=== PATIENT | female | born 1985 | race Hispanic/Latino ===

== ENCOUNTER → 2019-05-18 | Outpatient (CLI) | payer OTHER | END | disposition home or self-care (01) | LOC: SHCH 08:01 | PROVIDERS: ATTEND Internal Medicine Cardiovascular Disease | DX: I10 Essential (primary) hypertension (principal) | CPT/HCPCS: 93306 ==

== ENCOUNTER → 2021-09-25 | Outpatient (CLI) | payer OTHER ==
[~2021-09-25] MED LIST: GADOTERATE MEGLUMINE 10 MMOL/20 ML VIAL IV ONE
== END | disposition home or self-care (01) ==
LOC: RAH 13:36
PROVIDERS: ATTEND Internal Medicine Cardiovascular Disease
DX: I71.2 Thoracic aortic aneurysm, without rupture (principal)
CPT/HCPCS: 71555; A9575

== ENCOUNTER → 2024-02-16 | Outpatient (CLI) | payer OTHER ==
[2024-02-16 12:29] LABS: CREATININE 0.5 mg/dL (0.5-1.0); POTASSIUM 4.4 mmol/L (3.5-5.1)
== END | disposition home or self-care (01) ==
LOC: LAB 10:25
PROVIDERS: ATTEND Internal Medicine Cardiovascular Disease
DX: I10 Essential (primary) hypertension (principal)
CPT/HCPCS: 36415; 80048; 83735

== ENCOUNTER → 2024-10-31 | Outpatient (CLI) | payer OTHER ==
--- NOTE | 2024-11-01 08:50 | HMCIMG ---
EXAM: MRA Chest without and with Intravenous Contrast CLINICAL HISTORY: Patient with thoracic aortic aneurysm on prior imaging, undergoing follow-up evaluation. TECHNIQUE: Magnetic resonance images of the chest acquired in multiple planes before and after intravenous contrast. CONTRAST: 17 mL Clariscan COMPARISON: None provided. FINDINGS: PLEURA AND LUNGS: Evaluation of the lungs is severely limited by motion. No pleural effusion. MEDIASTINUM: No contour-deforming mediastinal or posterior mediastinal mass. LYMPH NODES: No definite mediastinal or axillary lymphadenopathy. CHEST WALL AND SOFT TISSUES: Median sternotomy sutures in situ. Chest wall, surrounding muscles, and soft tissues appear within normal limits. BONES: No acute bony abnormality. AORTA AND GREAT VESSELS: No aortic aneurysm or dissection. Ascending thoracic aorta measures 2.8 cm in caliber. Descending thoracic aorta measures 2.3 cm in caliber. Abdominal aorta measures 2.7 x 2.5 cm UPPER ABDOMEN: Mild hepatomegaly; right hepatic lobe measures up to 19.0 cm in craniocaudal dimension. Diffuse hepatic steatosis. Few simple hepatic cysts in both lobes, largest up to 1.0 cm in segment VIII. A 1.2 ??? 1.6 cm well-defined T2-weighted hyperintense cystic lesion with internal septation in segment , likely a benign complex cyst. Few well-defined T2-weighted hypointense lesions in the right hepatic lobe, largest up to 1.2 cm in segment VII, possibly regenerative nodules versus siderotic nodules. A 1.5 cm simple cortical cyst in the left renal interpolar region. Uncomplicated colonic diverticula incidentally noted. IMPRESSION: Status post median sternotomy. No aortic aneurysm or dissection. Mild hepatomegaly with diffuse hepatic steatosis. Multiple hepatic cysts, including a 1.2 ??? 1.6 cm cystic lesion in segment with internal septation, likely a benign complex cyst. Left renal interpolar simple cortical cyst measuring 1.5 cm. Uncomplicated colonic diverticula. /Thorndike
== END | disposition home or self-care (01) ==
LOC: RAH 08:50
PROVIDERS: ATTEND Internal Medicine Cardiovascular Disease
DX: I71.20 Thoracic aortic aneurysm, without rupture, unspecified (principal); K76.0 Fatty (change of) liver, not elsewhere classified; R16.0 Hepatomegaly, not elsewhere classified; N28.1 Cyst of kidney, acquired; K57.30 Diverticulosis of large intestine without perforation or abscess without bleeding; K76.89 Other specified diseases of liver; Z98.890 Other specified postprocedural states
CPT/HCPCS: 71555; A9575